=== PATIENT | female | born 1965 | race Caucasian/White ===

== ENCOUNTER 2016-04-09 09:29 | Emergency (ER) | payer OTHER ==
[~2016-04-09] VITALS: Ht 162.6 cm; Wt 134.1 kg
[2016-04-09 09:30] VITALS: BP 141/77; PULSE 86; RESP 17; O2SAT 98
--- NOTE | 2016-04-09 09:41 | ED.REPORT ---
HPI-Trauma Minor / Fall Date of Service Apr 09, 2016 ED Provider: Marck Cisneros MD Pt is a 50 y/o female w/ a hx of HTN presenting to the ED via EMS due to mechanical ground level fall prior to arrival. She is not anticoagulated. The pt was walking down a ramp to a portable and her foot slipped on a metal plate and injured her left ankle and lower back after landing flat on her back. She denies head injury, CP, abdominal pain, SOB, palpitations, numbness or weakness of the left ankle. Nursing Notes Stated Complaint: GROUND LEVEL FALL Chief Complaint: Multiple Trauma/Fall Nursing Notes Reviewed: Yes ([employer], meds not reconciled) Allergies: Coded Allergies: acetaminophen (Verified Allergy, Mild, VOMIT, 04/09/16) aspirin (Verified Allergy, Mild, VOMIT, 04/09/16) oxycodone (Verified Allergy, Mild, VOMIT, 04/09/16) Scheduled PRN Tramadol (Tramadol) 50 Mg Tablet 50-100 MG PO TID PRN PRN For Pain General Time Seen by MD: 09:35 Chief Complaint Fall Hx Obtained From: Patient, EMS Arrived By: Ambulance Onset Occurred: Just prior to arrival Symptom Duration: Since onset Caused by: Accidental, Fall on ground Location: Ankle left Back Quality: Painful Severity: Current: Mild Severity: Maximum: Moderate Similar Sx Previous: No Past Medical History Past Medical History Hypertension Anxiety Depression Past Surgical History Denies Smoking History Never Smoker Social History Alcohol Use: "Social" Drug Use: Denies drug use Ambulatory Status Independent Review of Systems Constitutional: Denies: Chills, Fever, Weakness - generalized Respiratory: Denies: Non-productive cough, Shortness of breath Musculoskeletal: Reports: Extremity pain, Extremity swelling, Lumbar pain Neurologic: Denies: Change LOC, Confusion, Dizziness, Focal weakness, Headache , Lightheaded, Numbness, Problem walking, Seizure, Slurred speech, Spinning sensation, Syncope, Unable to speak, Vision change Complete sys rev & neg: except as marked. Cardiovascular: Denies: Chest pain, Palpitations GI: Denies: Abdominal pain Physical Exam Initial Vital Signs Vital Signs (First) Date Time Temp Pulse Resp B/P Pulse Ox O2 Delivery O2 Flow Rate FiO2 04/09/16 09:30 36.6 86 17 141/77 98 Room Air Initial VS: Reviewed, Unavailable (none on chart, ordered) Head / Eyes: Atraumatic, Normocephalic, PERRL ENT: Mucous membranes moist, Conjunctiva normal, No scleral icterus Skin: Warm, Dry, No cyanosis Neurologic: Alert, Oriented, Nonfocal Psychiatric: Mood/affect normal, Behavior normal, Normal thought content General/Constitutional: Awake, Alert, No acute distress, Well appearing, Cooperative, Not toxic appearing Appearance / Presentation: Positive: Obese Neck: Atraumatic, Supple, No meningismus, Full range of motion, No swelling, Non-tender, No midline vertebral tend Back: Full range of motion Mild midline lumbar spine tenderness Lower Extremity / Pelvis / MS: No deformity, Neurologic intact, Vascular intact , No compartment syndrome, No circumferential injury, No edema, Pelvis stable, Pelvis non-tender LLE: Proximal tibia, knee, and hip exam normal Ankle / Foot: No deformity, Neurologic intact, Vascular intact, No compartment syndrome, No circumferential injury LLE: Tenderness of foot diffusely over metatarsals. Pain at the lateral malleolus but does not have tenderness. Decreased ROM secondary to pain. No effusions or abrasions. Interpretation & Diagnostics X-Ray Interpretation Xray Interpretation: IMPRESSION: No displaced fracture seen. If there is continued pain, followup exam or additional imaging such as MRI or CT could be performed for further assessment. Dictated by: Jay Jay HIDALGO Interpreted: Ondina Perea MD on 04/09/2016 at 10:43 Transcribed by: PAULETTE on 04/09/2016 at 10:43 Study Performed: 3 view lumbar spine Interpretation / Wet Read by: Interpret - Radiologist Xray Interpretation: IMPRESSION: No displaced fracture seen. If there is continued pain, followup exam or additional imaging such as MRI or CT could be performed for further assessment. Dictated by: Jay Jay HIDALGO Interpreted: Ondina Perea MD on 04/09/2016 at 10:43 Transcribed by: PAULETTE on 04/09/2016 at 10:43 Study Performed: 3 view X-Ray Ordered: Foot left Interpretation / Wet Read by: Interpret - Radiologist Xray Interpretation: IMPRESSION: No displaced fracture seen. If there is continued pain, followup exam or additional imaging such as MRI or CT could be performed for further assessment. Dictated by: Jay Jay HIDALGO Interpreted: Ondina Perea MD on 04/09/2016 at 10:44 Transcribed by: PAULETTE on 04/09/2016 at 10:44 Study Performed: 3 view X-Ray Ordered: Ankle left Interpretation / Wet Read by: Interpret - Radiologist Re-Eval/Medical Decision Med Decision/Clinical Course This is an obese 50-year-old female slipped and fell at work today and presents complaining mainly of left ankle and foot pain, but also her back being sore. She reports she did not hit her head, there was no loss of conscious, she denied any antecedent symptoms and the injury is secondary to mechanical fall and slip. Patient denies chest or abdominal pelvic symptoms. She reports she is having trouble bearing weight, but declines any pain medicine in the department. On exam she has no visible external signs of trauma, there is no ecchymosis swelling or bruising. She does have tenderness over the lateral malleolus, again without ecchymosis or laxity, and has decreased range of motion of the ankle. However there is no gross deformity. There is also some tenderness across the foot, although none over the fifth metatarsal. The patient has some mild back soreness but is able sit up and move around. She has pain in the lumbar area. Given her obesity though given a fall, there is potential risk for injury. Plain radiographs of the lumbar spine, left ankle , left foot were obtained and all were negative. The patient is placed in an air splint, given crutches. She is able to ambulate with crutches. She again declines pain medicines at this time, I have completed L&I paperwork. The patient is being discharged in stable condition. Source of Hx: Old records, EMS Re-Evaluation/Progress : Time of Eval: 12:51 Post-Splint Evaluation: Cap refill < 2 sec, Distal sensation intact, Distal motor Intact, No compartment syndrome Patient Status: Condition improved, Pain improved Re-Evaluation/Progress Note: Pt rechecked. Discussed negative imaging results. Informed pt of plan for treatment. Pt understands and agrees with plan for treatment. F/U and RTER warnings given. All questions addressed. Counseled Regarding: Diagnosis, Need for follow-up, When/why to return to ED Discharge & Departure Impression: Primary Impression: Fall from ground level Additional Impressions: Back strain Encounter type: initial encounter Qualified Code: S39.012A - Strain of muscle, fascia and tendon of lower back, initial encounter Ankle sprain Encounter type: initial encounter Involved ligament of ankle: unspecified ligament Laterality: left Qualified Code: S93.402A - Sprain of unspecified ligament of left ankle, initial encounter Disposition: Home Discharge Condition All VS Reviewed: Yes Condition: Stable Additional Instructions: 1. No fractures were appreciated on x-ray. 2. I recommend taking ibuprofen 400-800mg three times a day for pain as needed. I have written a presciption for some tramadol if needed for more severe pain. NOTE: Tramadol causes some drowsiness, no driving or operating machinery for at least 4 hours after taking 3. Continue and use your muscle relaxant cyclobenzaprine as needed as well. 4. It is medically okay to put weight on the left ankle, although it may be sore. Use the air splint and crutches as needed for support. 5. Symptoms are expected to improve with time. 6. Follow up with Dr. Leyva (call for an appointment for a recheck if not clearly improving over the next week) Referrals: Micheal Leyva MD Attestation Portions of this note were transcribed by Sukhi Noriega. I, Dr. Cisneros personally performed the history, physical exam and medical decision-making; I reviewed and confirmed the accuracy of the information in the transcribed note. Signed by Maribell Ryan, 04/09/16 - [id number] copies to: Micheal Leyva MD, Matthew F MD Apr 09, 2016 09:41 SUKHI NORIEGA Apr 09, 2016 09:51
--- NOTE | 2016-04-09 10:43 | DRSVH ---
PROCEDURE: X-RAY LEFT FOOT COMPLETE, MINIMUM THREE VIEWS ([id number]) INDICATIONS: pain, fall TECHNIQUE: 3 views of the foot were acquired. COMPARISON: None. FINDINGS: Bones: No fractures or dislocations. No suspicious bony lesions. Soft tissues: No tibiotalar joint effusion. Achilles tendon appears normal. Mild dorsal soft tissu e swelling at the level of midfoot. IMPRESSION: No displaced fracture seen. If there is continued pain, followup exam or additional patrick ging such as MRI or CT could be performed for further assessment. Dictated by: Jay Jay Verduzco RRA Interpreted: Ondina Perea MD on 04/09/2016 at 10:43 Transcribed by: PAULETTE on 04/09/2016 at 10:43 Approved by: Ondina Perea MD, PhD on 04/09/2016 at 16:56
--- NOTE | 2016-04-09 10:44 | DRSVH ---
PROCEDURE: X-RAY LEFT ANKLE, MINIMUM THREE VIEWS ([id number]) INDICATIONS: pain, fall TECHNIQUE: 3 views of the ankle were acquired. COMPARISON: None. FINDINGS: Bones: No fractures or dislocations. Ankle mortise is normally aligned. No suspicious bony lesions . Soft tissues: No tibiotalar joint effusion. Achilles tendon appears normal. Diffuse soft tissue th ickening noted within the lower leg. IMPRESSION: No displaced fracture seen. If there is continued pain, followup exam or additional patrick ging such as MRI or CT could be performed for further assessment. Dictated by: Jay Jay Verduzco [facility] Interpreted: Ondina Perea MD on 04/09/2016 at 10:44 Transcribed by: PAULETTE on 04/09/2016 at 10:44 Approved by: Ondina Perea MD, PhD on 04/09/2016 at 16:56
--- NOTE | 2016-04-09 10:44 | DRSVH ---
PROCEDURE: X-RAY LUMBAR SPINE, 2 OR 3 VIEW INDICATIONS: pain, fall TECHNIQUE: 3 views of the lumbar spine were acquired. COMPARISON: None. FINDINGS: Bones: 5 [id number] vertebrae are present. There is normal bony alignment. No vertebral body c ompression fractures. No suspicious bony lesions. Soft tissues: Overlying bowel gas pattern is normal. No suspicious soft tissue calcifications. IMPRESSION: No displaced fracture seen. If there is continued pain, followup exam or additional patrick ging such as MRI or CT could be performed for further assessment. Dictated by: Jay Jay Verduzco RRA Interpreted: Ondina Perea MD on 04/09/2016 at 10:43 Transcribed by: PAULETTE on 04/09/2016 at 10:43 Approved by: Ondina Perea MD, PhD on 04/09/2016 at 16:56
[2016-04-09] MEDS ORDERED: TRAM50TA2 PO (12:55)
[2016-04-09 13:10] VITALS: BP 140/78; PULSE 86; RESP 21; O2SAT 98
== END 2016-04-09 13:09 | disposition home or self-care (01) ==
LOC: SED 09:29 → EDUNIT# 09:29 → EDBD 09:29 → SED 13:09
DX: S39.012A Strain of muscle, fascia and tendon of lower back, initial encounter (principal); S93.402A Sprain of unspecified ligament of left ankle, initial encounter; W10.2XXA Fall (on)(from) incline, initial encounter; W01.0XXA Fall on same level from slipping, tripping and stumbling without subsequent striking against object, initial encounter; Y92.59 Other trade areas as the place of occurrence of the external cause; Y93.01 Activity, walking, marching and hiking; Y99.0 Civilian activity done for income or pay; I10 Essential (primary) hypertension; E66.9 Obesity, unspecified; J45.909 Unspecified asthma, uncomplicated; E11.9 Type 2 diabetes mellitus without complications; Z68.43 Body mass index [BMI] 50.0-59.9, adult